=== PATIENT | female | born 1990 | race Caucasian/White ===

== ENCOUNTER 2018-04-20 17:33 | Inpatient (IN) | payer OTHER ==
[~2018-04-20] VITALS: Ht 172.7 cm; Wt 74.8 kg
[2018-04-20] MEDS ORDERED: CLONIDINE HCL0.3 M1 PO (18:07)
[2018-04-20] MEDS ORDERED: GABAPENTIN400 M2 PO (18:07)
[2018-04-20] MEDS ORDERED: VITAMIN B-121000 MC3 PO (18:08)
[2018-04-20] MEDS ORDERED: SEROQUEL25 M1 PO (18:09)
[2018-04-20] MEDS ORDERED: SEROQUEL200 M1 PO (18:09)
[2018-04-20] MEDS ORDERED: DOXEPIN HCL PO (18:10)
[2018-04-20 18:13] LABS: ABSOLUTE BASOPHIL COUNT 0 /CUMM (0.0-0.2); ABSOLUTE EOSINOPHIL COUNT 0.1 /CUMM (0.0-0.7); ABSOLUTE GRANULOCYTE CT 5.4 /CUMM (1.4-6.5); ABSOLUTE MONOCYTE COUNT 0.5 /CUMM (0.10-0.60); BASOPHIL % 0.3 % (0.0-2.0); GRANULOCYTE % 53.6 % (42.2-75.2); MEAN CORPUSCULAR HGB 31.4 PG (27.0-31.0); MEAN CORPUSCULAR HGB CONC 33.9 G/DL (33.0-37.0); MEAN CORPUSCULAR VOLUME 92.5 FL (81.0-99.0); MEAN PLATELET VOLUME 10.1 FL (7.4-10.4); PLATELET COUNT 251 /CUMM (130-400); RBC DISTRIBUTION WIDTH 15.2 % (11.5-14.5); RED BLOOD CELL CT 4.65 /CUMM (4.20-5.40)
[2018-04-20] MEDS ORDERED: HALDOL DEC100 MG/1 M PO (18:14)
[2018-04-20] MEDS ORDERED: PRAZOSIN HCL1 M1 PO (18:14)
[2018-04-20] MEDS ORDERED: METHADONE HCL10 M1 PO (18:15)
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
[2018-04-21 19:02] VITALS: BP 88/55
[2018-04-21] MEDS ORDERED: HALOPERIDOL5 MG PO (19:02)
[2018-04-21] MEDS ORDERED: MIRALAX119 GM PO (19:07)
[2018-04-21 21:20] VITALS: BP 98/62
[2018-04-22 07:50] VITALS: BP 114/62; BP 90/53
[2018-04-22 07:55] VITALS: BP 114/62
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
[2018-04-22 20:05] VITALS: BP 117/61
[2018-04-23 08:19] VITALS: BP 101/54
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
--- NOTE | 2018-04-23 17:13 | SOCIAL WORKER PROG NOTE PSYCH ---
See Addendum Social Work Progress Note Progress Note This software writer met with the patient. She stated that she is feeling "alright" and described her mood as "flat." Patient stated that she had not yet called [employer], but planned to do so as she does not want to return to her boyfriend's (Malcolm) home in [place]. She identified a friend, Cameron (also in [place]) who is supportive, but unsure about scheduling a family/friend meeting with him. Patient reported a decrease in her SI, however, stated, "I'm not as spiritually comfortable." When asked for clarification, patient discussed feeling hopeless and helpless. Patient stated that she would like to contact the worker ( possibly through [facility]) that arranges visits with her son. She stated that she has the phone number. This software writer discussed case with Dr. Galloway. Patient can call Racquel Fuentes after 6:30pm richard.
[2018-04-23 19:58] VITALS: BP 91/51
[2018-04-24 07:50] VITALS: BP 89/55
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
--- NOTE | 2018-04-24 14:30 | SOCIAL WORKER PROG NOTE PSYCH ---
Social Work Progress Note Progress Note CARLY COBURN [id number] 1990 CARLY COBURN [id number] Pended Authorization # Client Authorization # Type of Request [id number] CONCURRENT Date of Admission/ Start of Services Requested From Submission Date 04/21/2018 04/24/2018 04/24/2018
--- NOTE | 2018-04-24 17:24 | SOCIAL WORKER PROG NOTE PSYCH ---
Social Work Progress Note Progress Note This typewriters functional tester met with patient. She described her mood as "depressed" and continues to experience passive SI; denies any plan. She denied HI/ hallucinations. Patient stated that she has not yet called the fpc, [facility], as she is not sure what to say. She requested support from this typewriters functional tester in making the phone call and she signed an OREN. Patient and this typewriters functional tester spoke with Shabnam at [facility] ([phone]) and patient completed a phone screening. Shabnam stated that she would contact us (this typewriters functional tester's number provided) after she has identified an available bed in [place]. Patient was agreeable to this plan. After the call she described her feelings about it as "neutral."
[2018-04-24 19:34] VITALS: BP 117/56
[2018-04-25 07:56] VITALS: BP 117/68
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
--- NOTE | 2018-04-25 17:45 | SOCIAL WORKER PROG NOTE PSYCH ---
Social Work Progress Note Progress Note This medical underwriter and patient spoke with Jaelyn at [facility] ([phone]). She obtained some additional informed from the patient and stated that she would be in contact with this medical underwriter regarding bed availability. She was provided with this medical underwriter's call back number. 1:13pm This medical underwriter returned Jaelyn's call and spoke with Suleiman and Jaelyn was no longer in the office. Suleiman stated that he was unsure if the patient would be accepted and would investigate further. He was provided with this medical underwriter's call back number. This medical underwriter spoke with the [facility] dequan in interested of making a referral. Patient's clinical was requested (faxed at 2:08pm today) and this medical underwriter was informed that a response would be provided on Saturday. This medical underwriter was also informed that the patient had left "in good standing" at the last discharge. This medical underwriter met with patient to provide an update on above calls. She requested to be referred to [facility] and [facility]. Patient will also call [facility] (a custodial [place]) to inquire more about their program. These names and numbers were obtained from a list provided by [facility]. Patient refused [facility] referrals. This medical underwriter faxed clinical to [facility] today at 5:18pm, fax: [phone] This medical underwriter left a vm for Marge Abarca ([phone]) requesting their fax number to submit a referral This medical underwriter received a vm from Suleiman at [facility] stating that the patient may continue to call daily to inquire about bed availability. Patient was informed.
[2018-04-25 19:58] VITALS: BP 124/60
[2018-04-26 06:44] VITALS: BP 101/65
--- NOTE | 2018-04-26 12:16 | CP SOUTH PROGRESS NOTE PSYCH ---
Psych (Inpt) Progress Note Progress Note Pt notes that she has trauma related night terrors for which she was recently rx prazosin. No SE noted thus far. She reflected on her pattern of medication noncompliance and believes she must change how she thinks about things because have been helpful for her overall, when she takes them. She denies SI or HI. Current Medications Sig/Suresh Start time Last Medication Dose Route Stop Time Status Admin Acetaminophen 650 MG Q6P PRN 04/21 1415 AC PO Al Hydroxide/Mg 30 ML Q4-6 PRN PRN 04/21 1415 AC Hydroxide PO Benztropine Mesylate 1 MG .STK-MED ONE 04/25 174 DC PO 04/25 174 Benztropine Mesylate 1 MG Q6P PRN 04/21 1415 AC 04/25 PO 1748 Chlorpromazine 50 MG Q6P PRN 04/26 1215 UNVr PO Clonidine 0.2 MG TID 04/20 2100 AC 04/26 PO 0831 Cyanocobalamin 1,000 MCG DAILY 04/21 141 AC 04/26 PO 0832 Gabapentin 600 MG 799,04/25 08 AC 04/26 PO 0747 Gabapentin 900 MG 04/24 AC 04/25 PO 2056 Gabapentin 300 MG Q6P PRN 04/21 1415 AC 04/22 PO 1628 Haloperidol 5 MG .STK-MED ONE 04/25 174 DC PO 04/25 174 Haloperidol 5 MG Q6P PRN 04/21 1415 DC 04/25 PO 1749 Magnesium Hydroxide 30 ML AT BEDTIME NEED.. 04/21 141 AC 04/24 PO 1941 Methadone HCl 100 MG 04/25 08 AC 04/26 PO 0749 Nicotine 4 MG Q2P PRN 04/23 2045 AC 04/26 PO 0752 Polyethylene Glycol 17 GM DAILY PRN 04/24 2206 AC 04/26 PO 0746 Prazosin HCl 2 MG 04/24 AC 04/25 PO 2056 Quetiapine Fumarate 25 MG 1400 04/22 1400 AC 04/25 PO 1249 Quetiapine Fumarate 200 MG QPM 04/21 2100 AC 04/25 PO 205 Trazodone HCl 50 MG AT BEDTIME NEED.. 04/21 141 AC 04/23 PO 212 Vital Signs Date Time Temp Pulse Resp B/P B/P Pulse O2 O2 Flow FiO2 Mean Ox Delivery Rate 04/26 831 68 10165 04/26 0753 97.7 68 04/26 0644 52 65 04/25 2057 60 12460 04/25 2057 60 12460 04/25 1958 97.0 60 12404/25 97.6 83 18 117/68 MSE Appearance: as stated age Speech : nl rate, rhythm, volume and prosody Behavior: cooperative Motor: + psychomotor retardation Mood : OK, still struggling Affect : flat, non-labile, very irritable, appropriate, constricted Thought process: linear and goal directed Thought content : no delusions or paranoia Perceptions: denied AVHs, denied SI or HI Insight: poor Judgment: poor A/P: Pt with unspec depression, PTSD with ongoing TRS which affect her mood. - Continue current meds except d/c haldol and start thorazine. - To increase prazosin to 3mg if tomorrow
[2018-04-26 14:38] VITALS: BP 82/51
[2018-04-26 15:20] VITALS: BP 112/58
[2018-04-26 19:47] VITALS: BP 98/56
[2018-04-26 20:27] VITALS: BP 104/60
[2018-04-27 08:34] VITALS: BP 92/50
--- NOTE | 2018-04-27 11:53 | CP SOUTH PROGRESS NOTE PSYCH ---
Psych (Inpt) Progress Note Progress Note Pt notes no nightmares overnight. Does want to increase the prazosin slightly. Denies SI or HI. Current Medications Sig/Suresh Start time Last Medication Dose Route Stop Time Status Admin Acetaminophen 650 MG Q6P PRN 04/21 1415 AC PO Al Hydroxide/Mg 30 ML Q4-6 PRN PRN 04/21 1415 AC Hydroxide PO Benztropine Mesylate 1 MG Q6P PRN 04/21 1415 AC 04/25 PO 1748 Chlorpromazine 50 MG Q6P PRN 04/26 1215 AC 04/27 PO 0955 Clonidine 0.1 MG TID 04/27 1400 UNVr PO Clonidine 0.2 MG TID 04/20 2100 DC 04/26 PO 202 Cyanocobalamin 1,000 MCG DAILY 04/21 1418 AC 04/27 PO 0836 Gabapentin 600 MG 0800,1400 04/25 0800 AC 04/27 PO 0836 Gabapentin 900 MG 2100 04/24 2100 AC 04/26 PO 202 Gabapentin 300 MG Q6P PRN 04/21 1415 AC 04/22 PO 1628 Haloperidol 5 MG Q6P PRN 04/21 1415 DC 04/25 PO 1749 Magnesium Hydroxide 30 ML AT BEDTIME NEED.. 04/21 1415 AC 04/24 PO 1941 Methadone HCl 100 MG 0800 04/25 0800 AC 04/27 PO 0836 Nicotine 4 MG Q2P PRN 04/23 204 AC 04/27 PO 0837 Polyethylene Glycol 17 GM DAILY PRN 04/24 2206 AC 04/26 PO 0746 Prazosin HCl 2 MG 04/24 2100 AC 04/26 PO 2026 Quetiapine Fumarate 25 MG 1400 04/22 1400 AC 04/26 PO 1528 Quetiapine Fumarate 200 MG QPM 04/21 2100 AC 04/26 PO 202 Trazodone HCl 50 MG AT BEDTIME NEED.. 04/21 1415 AC 04/23 PO 212 Laboratory Tests 04/26 131 Chemistry Total Beta HCG (NEGATIVE) NEGATIVE Vital Signs Date Time Temp Pulse Resp B/P B/P Pulse O2 O2 Flow FiO2 Mean Ox Delivery Rate 04/27 957 87 92/50 04/27 0834 97.0 87 92/50 04/26 2027 70 104/60 04/26 2027 70 104/60 08/04 2026 70 104/60 08/04 1947 98.2 76 98/56 04/26 1526 60 112/58 04/26 1520 60 112/58 04/26 1438 68 82/51 MSE Appearance: as stated age Speech : nl rate, rhythm, volume and prosody Behavior: cooperative Motor: + psychomotor retardation Mood : it was better last night Affect : flat, non-labile, less irritable, appropriate, constricted Thought process: linear and goal directed Thought content : no delusions or paranoia Perceptions: denied AVHs, denied SI or HI Insight: poor Judgment: poor A/P: Pt with unspec depression, PTSD with ongoing TRS which affect her mood. - Decrease clonidine to 0.1mg TID from 0.2mg given increase in prazosin and decreasing BPs. - Increase prazosin to 3mg
[2018-04-27 19:59] VITALS: BP 99/56
[2018-04-28 07:58] VITALS: BP 114/67
--- NOTE | 2018-04-28 08:28 | CP SOUTH PROGRESS NOTE PSYCH ---
Psych (Inpt) Progress Note Progress Note I reviewed Dr. Kwon's notes for the weekend of April 26 and 2017. The pt.'s progress, inpatient treatment plan, and aftercare plans were discussed in the treatment planning meeting (team members: Rosio Dunbar, SHAYNA, RN, OTR/L, and Psychiatrist) Vital Signs: Date Time Temp Pulse Resp B/P B/P O2 04/288 98.1 88 114/67 04/28 0752 97.6 68 18 114/67 04/27 2023 68 107/54 Mental Status: Marilyn was alert and oriented to time, place, and person. She denied wishing or thinking of suicide. The patient denied homicidal ideation, denied hallucinations, and denied feeling paranoid. Marilyn was calm and cooperative. She showed normal psychomotor activity, and the re were no abnormal or bizarre behaviors. Her speech was normal. She showed constricted affect and reported mood still depressed. there were no delusions during the interview. Patient was coherent, there was no thought disorder. Marilyn Assessment Update: Marilyn Montilla is a 27-year-old Single White Female who is on the inpatient psych unit due to reporting that she was whishing . Since her admission on 04/21/2018, Marilyn has shown minor improvement in mood and has been free of thoughts of suicide or wishing today and yesterday Diagnoses: PTSD Opioid use disorder, on maintenance treatment Other Specified Personality Disorder (mixed cluster B Treatment Plan Update: Reduce methadone to 95 mg daily Increase prazosin to 3 mg at bedtime Continue all other medications unchanged. piece of the patient's treatment and aftercare plan fold and place the patient may be discharged today. Otherwise, she will be reevaluated Saturday for discharge.
--- NOTE | 2018-04-28 16:41 | SOCIAL WORKER PROG NOTE PSYCH ---
Social Work Progress Note Progress Note The services requested require additional review. You will be contacted regarding the status of this request if further information is needed. An authorization decision will be made within the required timeframes and details of that decision may be found under the member's authorization history. Member Name Member ID Member Subscriber Name Subscriber ID CARLY COBURN [id number] 1990 CARLY COBURN [id number] Pended Authorization # Client Authorization # Type of Request [id number] CONCURRENT Date of Admission/ Start of Services Requested From Submission Date 04/21/2018 04/28/2018 04/28/2018 Level of Service Type of Service Level of Care Type of Care INPATIENT/HLOC Mental Health Inpatient Inpatient [facility] - Inpatient Hospital Reason Code P76 Provider Name & Address Provider ID Provider Alternate ID NPI # for Authorization ALYCIA ZAVALA [id number] [address] [place] [id number] Message
--- NOTE | 2018-04-28 17:53 | SOCIAL WORKER PROG NOTE PSYCH ---
Social Work Progress Note Progress Note This scientific technical writer met [facility] patient
[2018-04-28 19:43] VITALS: BP 121/75
[2018-04-29 07:51] VITALS: BP 127/67
--- NOTE | 2018-04-29 09:11 | CP SOUTH PROGRESS NOTE PSYCH ---
Psych (Inpt) Progress Note Progress Note The pt.'s progress, inpatient treatment plan, and aftercare plans were discussed in the treatment planning meeting (team members: Rosio Dunbar, SHAYNA, RN, OTR/L, and Psychiatrist) Vital Signs: Date Time Temp Pulse Resp B/P B/P 04/28 0758 98.1 88 114/67 04/28 0752 97.6 68 18 114/67 Mental Status: The patient was alert and oriented to time, place, and person. She denied wishing or thinking of suicide. The patient denied homicidal ideation, denied hallucinations, and denied feeling paranoid. The patient was calm and cooperative. She showed normal psychomotor activity, and the re were no abnormal or bizarre behaviors. Her speech was normal. She showed constricted affect and reported mood still depressed. The patient did not have delusions during the interview. Patient was coherent, there was no thought disorder. Assessment Update: the patient is a 27-year-old Single White Female who is on the inpatient psych unit due to reporting that she was whishing . Since her admission on 04/21/2018, Marilyn has shown minor improvement in mood and has been free of thoughts of suicide or wishing today and yesterday Diagnoses: PTSD Opioid use disorder, on maintenance treatment Other Specified Personality Disorder (mixed cluster B Treatment Plan Update: Increase Chlorpromazine to 75 MG Q6P PRN anxiety Add PRN Clonidine 0.2 mg Q6 hors PRN Increase Gabapentin to 900 mg QAM and 900 mg Q14:00 Continue all other medications unchanged.
--- NOTE | 2018-04-29 10:38 | SOCIAL WORKER PROG NOTE PSYCH ---
Social Work Progress Note Progress Note Faxed referrals to [facility], [facility], [facility], and [facility]. *Pt still needs referral to crisis and respite and [facility]
--- NOTE | 2018-04-29 11:15 | SOCIAL WORKER PROG NOTE PSYCH ---
Social Work Progress Note Progress Note Faxed referral to [facility] *needs a referral to crisis and respite*
--- NOTE | 2018-04-29 17:14 | SOCIAL WORKER PROG NOTE PSYCH ---
Social Work Progress Note Progress Note This freelance copywriter met with patient. She was informed that rehab referrals were being made today. Patient was provided with numbers to rehabs as well as [facility]. Patient stated that she has not yet called [facility] and will do so today. Patient participated in this conversation very briefly and left soon after the meeting started. This freelance copywriter spoke with Mae at the [facility] ([phone], ext. [phone]) and a phone screening has been scheduled for tomorrow, 04/30/18, at 12pm. Mae stated that the patient would likely need to go to a 30 day program first, but wanted to complete the screening tomorrow. This freelance copywriter received a call from Rosy at [facility]. She stated that the patient has been accepted and placed on the waiting list, however, there is a 1- 2 month wait for a bed. Patient was informed. This freelance copywriter met with the patient to review any progress made. We (the patient and this freelance copywriter) called the following together: - [facility]: we inquired about their emergency fdc and the referral process. We were informed that the patient would need to contact [facility] before calling them for a screening ([phone]) - [facility]: patient stated that she has an intake assessment scheduled for 05/01/18 between 8am and 10am. A vm was left for the program at [phone] asking for more information on the referral process - [facility]: we left a vm for Michell (who was unavailable at the time of the call) in response to her message ([phone] -[facility] ([facility]): we called and spoke with Regina. Upon informing that we were calling from [facility] in [place], Regina instructed us to call Neena as [facility] was within their catchment area. We informed her that we had been instructed to call [facility]. Regina was unable to provide any assistance due to [place] being out of the catchment area. -[facility] ([phone]): we called and the patient was instructed to call tomorrow between 8:30am and 12:30am for a screening. They were informed that the patient has been accepted to [facility] with a 1-2 month wait - [facility]: patient will call tomorrow at 12pm to complete a phone screening -Patient will follow up with the following rehab programs: [facility], [facility], [facility]
[2018-04-29 20:10] VITALS: BP 136/74
[2018-04-30 07:42] VITALS: BP 117/76
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
--- NOTE | 2018-04-30 18:28 | SOCIAL WORKER PROG NOTE PSYCH ---
Social Work Progress Note Progress Note This sports writer met with patient and assisted her in calling Mae at the [facility] ([phone], ext. [phone]) to complete a phone screening. We were informed that the wait is currently 4-6 weeks and that the patient may pursue other rehab programs during this time. We met following the screening. She discussed calls that she has made and hopes to find a rehab that she can go to. She appeared brighter and clearer than previous meetings/conversations. She denied SI/HI/AH/VH. This sports writer received a call from Suleiman at [facility] ([facility]) inquiring about an update on the patient. This sports writer attempted to return the call ), however, Suleiman had left for the day. This sports writer was asked to call back tomorrow. Patient was informed and agreeable to this sports writer returning the call tomorrow.
[2018-04-30 19:55] VITALS: BP 119/58
[2018-05-01 07:39] VITALS: BP 109/64
--- NOTE | 2018-05-01 12:05 | SOCIAL WORKER PROG NOTE PSYCH ---
Social Work Progress Note Progress Note CARLY COBURN [id number] 1990 CARLY COBURN [id number] Pended Authorization # Client Authorization # Type of Request [id number] CONCURRENT Date of Admission/ Start of Services Requested From Submission Date 04/21/2018 05/01/2018 05/01/2018
[2018-05-01] MEDS ORDERED: CLONIDINE HCL0.1 MG PO (12:18)
[2018-05-01] MEDS ORDERED: PRAZOSIN HCL2 M1 PO (12:19)
[2018-05-01] MEDS ORDERED: GABAPENTIN600 M1 PO (12:21)
[2018-05-01] MEDS ORDERED: METHADONE HCL10 M1 PO (12:21)
[2018-05-01] MEDS ORDERED: QUETIAPINE FUMA50 M1 PO (12:23)
[2018-05-01] MEDS ORDERED: MIRALAX119 GM PO (12:25)
[2018-05-01] MEDS ORDERED: MELATONIN5 M7 PO (12:25)
[2018-05-01] MEDS ORDERED: VITAMIN B-121000 MC3 PO (12:25)
--- NOTE | 2018-05-01 12:27 | Patient Discharge Instructions ---
Psych Discharge Inst General Discharge Information Reason for Admission: wishing Psy Discharge Primary Diag+ PTSD Psy Discharge Secondary Diag+ Opioid dependence Summary Tests/Major Procedures Lab Cholesterol 219 MG/DL H 04/20/18 1800 Cholesterol/HDL Ratio 4 % 04/20/18 1800 HDL Cholesterol 49 mg/dL 04/20/18 1800 Hemoglobin A1c 4.6 % 04/20/18 1800 LDL Cholesterol, Calc 126 mg/dL 04/20/18 1800 Triglycerides 223 mg/dL H 04/20/18 1800 Studies Pending at DC: None Patient Instructions Contact Information Your Psychiatrist on [facility] was Chester Galloway MD * If you are experiencing an emergency related to this hospitalization, please call [phone] to contact the treating psychiatrist or the psychiatrist-on- call. * To Request a copy of your medical records, please contact the Medical Records Department at [phone]. * To request results of studies pending at the time of discharge, please call [phone]. * Continue your Medications until directed to stop by your Healthcare provider. General Medication Information Please continue to take your new medications and your continued home medications , unless otherwise indicated on your discharge medication list, or unless directed by your MD or CAT SKINNER to stop them. Special Instructions Diet Regular Activity Normal - Tobacco Use Treatment Offered Post DC Medications Offered: Script Given-See Med List Post DC Tobacco Treatment Plan: Refused Tobacco Tx Pgm - EtOH/Drug Use D/O Treatment Offered Post DC Medications Offered: Script Given-See Med List Post DC EtOH/SubAbuse TX Plan: Other SubAbuse/Dual Pgm Metabolic Screening Patient on a neuroleptic(s) . Enter below results for Hemoglobin A1C, and lipid panel if obtained during the last 365 days. BMI: 25.000 Blood Pressure: 109/64 Laboratory Results From [facility] (If applicable): Lab Cholesterol 219 MG/DL H 04/20/18 1800 Cholesterol/HDL Ratio 4 % 04/20/18 1800 HDL Cholesterol 49 mg/dL 04/20/18 1800 Hemoglobin A1c 4.6 % 04/20/18 1800 LDL Cholesterol, Calc 126 mg/dL 04/20/18 1800 Triglycerides 223 mg/dL H 04/20/18 1800 Advance Directives Does the Patient have Medical Advance Directives No/Refused further info Does Pt have Psychiatric Advance Directives? No/Refused further info Does Patient have a Designated Surrogate Decision Maker: No Information About Psychiatric Advance Directives Provided? Refused Discharge Plan Post Hospital Treatment Plan: [facility]
[2018-05-01 13:00] VITALS: BP 125/61
--- NOTE | 2018-05-01 13:28 | DISCHARGE SUMMARY REPORT-PSYCH ---
Visit Information Visit Dates/Diagnosis' Admission Date: 04/21/18 Discharge Date: 05/01/18 Reason for Admission: wishing Psy Discharge Primary Diag: PTSD Psy Discharge Secondary Diag: Opioid dependence Hospital Course Course Allergies: Coded Allergies: Fish Containing Products (Severe, HIVES 04/21/18) Hospital Course/TX Response: The pt.'s progress, inpatient treatment plan, and aftercare plans were discussed in the treatment planning meeting (team members: Rosio Dunbar, SHAYNA, RN, OTR/L, and Psychiatrist) Mental Status: The patient was alert and oriented to time, place, and person. She denied wishing or thinking of suicide. The patient denied homicidal ideation, denied hallucinations, and denied feeling paranoid. the patient was calm and cooperative. She showed normal psychomotor activity, and there were no abnormal or bizarre behaviors. Her speech was normal. She showed constricted affect and reported mood still depressed. The patient did not have delusions during the interview. Patient was coherent, there was no thought disorder. Assessment Update: The patient is a 27-year-old Single white female who was admitted to the inpatient psych unit for making statements about whishing . Since her admission on 04/21/2018, Marilyn has shown minor improvement in mood and has been free of thoughts of suicide or wishing for the past 4 days Diagnoses: PTSD Opioid use disorder, on maintenance treatment Other Specified Personality Disorder (mixed cluster B Treatment Plan Update: Discharge home Follow up with the [facility] in [place], [place] Discharge HBIPS - Tobacco Use Treatment Offered - EtOH/Drug Use D/O Treatment Offered Metabolic Screening - Screen if on a Neuroleptic Medication - Metabolic screening should include: - Blood Pressure, BMI, Glucose or Hgb A1c, & a - Lipid profile from within the past 365 days. Discharge Instructions General Discharge Information Discharge Diet Regular Discharge Activity Normal Prescriptions Stop taking the following medications: Clonidine HCl (Clonidine HCl) 0.3 MG TABLET ORAL THREE TIMES DAILY Gabapentin (Gabapentin) 400 MG CAPSULE ORAL THREE TIMES DAILY Quetiapine Fumarate (Seroquel) 200 MG TABLET ORAL TAKE AT BEDTIME Doxepin HCl (Doxepin HCl) 75 MG CAPSULE ORAL 5 PM Prazosin HCl (Prazosin HCl) 1 MG CAPSULE ORAL AT BEDTIME Methadone Hydrochloride (Methadone HCl) 10 MG TABLET ORAL DAILY Continue taking these medications: Polyethylene Glycol 3350 (Miralax) 17 GRAM/DOSE POWDER 1 Dose ORAL DAILY as needed for CONSTIPATION Qty = 15 Instructions: MIXED WITH 8 OZ FLUID This prescription has been renewed Cyanocobalamin (Vitamin B-12) 1,000 MCG TABLET 1 Tablet ORAL DAILY Qty = 30 This prescription has been renewed Start taking the following new medications: Methadone Hydrochloride (Methadone HCl) 10 MG TABLET 95 Milligram ORAL DAILY @8 AM Qty = 1 No Refills Melatonin (Melatonin) 5 MG TABLET 10 Milligram ORAL 2000 Qty = 30 No Refills Clonidine HCl (Clonidine HCl) 0.1 MG TABLET 1 Tablet ORAL THREE TIMES DAILY Qty = 45 No Refills Prazosin HCl (Prazosin HCl) 2 MG CAPSULE 2 Capsule ORAL AT BEDTIME Qty = 30 No Refills Gabapentin (Gabapentin) 600 MG TABLET 2 Tablet ORAL THREE TIMES DAILY Qty = 90 No Refills Quetiapine Fumarate (Quetiapine Fumarate) 50 MG TABLET 3 Tablet ORAL AT BEDTIME Qty = 45 No Refills Studies Pending at Discharge None
--- NOTE | 2018-05-01 18:41 | SOCIAL WORKER PROG NOTE PSYCH ---
Social Work Progress Note Progress Note Patient approached this justowriter operator stating that she would be discharging today. After confirming this with Dr. Galloway, this justowriter operator met with patient regarding discharge plans. She stated that she has a friend that she can stay with in [place] temporarily. She refused a meeting with this individual and refused to allow this justowriter operator to contact this person to confirm these plans. Patient denied SI/HI/AH/VH and stated that she would return to the hospital if feeling unsafe or in crisis. She also accepted the crisis numbers and warm lines upon discharge. This justowriter operator and patient spoke with Cathi Contreras at the [facility]. Patient will return to [facility] ([facility]) for Methadone and IOP, beginning tomorrow, 06/01/18 between 7am and 1pm. Salome Contreras instructed the patient to come to her office for bus passes. Salome Contreras was also informed that the patient has been accepted the [facility] for rehab, however, has a 1-2 month wait for a bed. She was also informed that other referrals have been submitted and that the patient will continue to follow up with them. Faxed Referral(s) Referred To: [facility] Transition of Care Documents sent: Health Summary, W10 Faxed to: [facility] Fax #: [phone] Faxed by: China Dunbar LCSW Date faxed: 05/01/18 Time Faxed: [phone]
== END 2018-05-01 15:14 | DRG 755 ==
LOC: ERH 17:33 → ERHI 04-21 14:12 → CP SOUTH 04-21 14:12 → ENTRNSPT 04-21 18:21 → EDTRNSPTSTS 04-21 18:24 → EDTRNSPT 04-21 18:24 → CP SOUTH 04-21 18:38 → CMPTRNSPT 04-21 18:39 → CP SOUTH 04-21 20:00
PROVIDERS: Physician Assistant Medical
DX: F43.10 Post-traumatic stress disorder, unspecified (principal); F11.20 Opioid dependence, uncomplicated
CPT/HCPCS: 80307; 81001; 81025; 93005; 93010; G0463; G0480; J0515; J1630

== ENCOUNTER 2018-05-07 10:06 | Emergency (ER) | payer OTHER ==
[~2018-05-07 10:06] MED LIST: CLONIDINE HCL0.1 MG PO; CLONIDINE HCL0.3 M1 PO; DOXEPIN HCL PO; GABAPENTIN400 M2 PO; GABAPENTIN600 M1 PO; HALDOL DEC100 MG/1 M PO; HALOPERIDOL5 MG PO; MELATONIN5 M7 PO; METHADONE HCL10 M1 PO; MIRALAX119 GM PO; PRAZOSIN HCL1 M1 PO; PRAZOSIN HCL2 M1 PO; QUETIAPINE FUMA50 M1 PO; SEROQUEL200 M1 PO; SEROQUEL25 M1 PO; VITAMIN B-121000 MC3 PO
[2018-05-07 10:47] LABS: ABSOLUTE BASOPHIL COUNT 0 /CUMM (0.0-0.2); ABSOLUTE EOSINOPHIL COUNT 0.2 /CUMM (0.0-0.7); ABSOLUTE GRANULOCYTE CT 7.2 /CUMM (1.4-6.5); ABSOLUTE LYMPH COUNT 3.7 /CUMM (1.2-3.4); ABSOLUTE MONOCYTE COUNT 0.7 /CUMM (0.10-0.60); BASOPHIL % 0.2 % (0.0-2.0); EOSINOPHIL % 1.7 % (0-5); GRANULOCYTE % 61.1 % (42.2-75.2); HEMATOCRIT 40.1 % (37-47); MEAN CORPUSCULAR HGB 32.2 PG (27.0-31.0); MEAN CORPUSCULAR HGB CONC 35.1 G/DL (33.0-37.0); MEAN CORPUSCULAR VOLUME 91.7 FL (81.0-99.0); MEAN PLATELET VOLUME 8.8 FL (7.4-10.4); PLATELET COUNT 314 /CUMM (130-400); RBC DISTRIBUTION WIDTH 13.6 % (11.5-14.5); RED BLOOD CELL CT 4.38 /CUMM (4.20-5.40); WHITE BLOOD CELL COUNT 11.9 /CUMM (4.8-10.8)
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
--- NOTE | 2018-05-08 13:09 | ED PSY CRISIS COLLATERAL NOTE ---
See Addendum Collateral Note Collateral Note Family/Inform/Rajwinder Contacts: 05/08/18: Crisis met with Marilyn for re-evaluation. Marilyn was drowsy and had difficulty keeping her eyes open until she fully sat up and crossed her legs on the stretcher. Pt states she has been suicidal since before yesterday. She is focused on trying to find a hospital that will do trauma work. Crisis explained to patient that trauma work is not part of acute psychiatric services as trauma work takes time. Pt was concerned she would be discharged from the hospital and still have flashbacks. Crisis attempted to assure patient that she would be linked to a trauma provider post discharge regardless of which hospital she was admitted to. Pt was informed she was being considered for transfer to [facility], [facility] and [facility]. Pt was informed that if she was not transferred today then she may be admitted to our unit tomorow if beds are available. Pt states she liked the unit but not her doctor stating that she didn't think the doctor listened to her, told her how she was feeling instead of asking her and was pushy. Dr. Galloway, psychiatrist who discharged pt on 05/01/18 to also saw patient today. See his note.
[2018-05-08 16:52] VITALS: BP 105/53
== END 2018-05-08 18:15 | disposition short-term general hospital (02) ==
LOC: ERH 10:06
PROVIDERS: Physician Assistant Medical
DX: T76.21XA Adult sexual abuse, suspected, initial encounter (principal); R45.851 Suicidal ideations; F14.10 Cocaine abuse, uncomplicated; F13.10 Sedative, hypnotic or anxiolytic abuse, uncomplicated; F11.10 Opioid abuse, uncomplicated; B19.10 Unspecified viral hepatitis B without hepatic coma; B19.20 Unspecified viral hepatitis C without hepatic coma
CPT/HCPCS: 87070; 80307; 81001; 81025; 86803; 87389; 87491; 87591; 93005; 93010; 96372; G0463; G0480; J0456; J0696; J2001